=== PATIENT | female | born 1945 | race Two or more races ===

== ENCOUNTER → 2016-10-22 | Day surgery (SDC) | payer OTHER ==
[~2016-10-22] VITALS: Ht 152.4 cm; Wt 64.4 kg
[~2016-10-22] MED LIST: ALBU1AER4 IN; ANGIOMAX 250 MG VIAL IV ONE; ATOR1TAB PO; COMIH INH; ERGO1CAP6 PO; FENO160T8 PO; IOHEXOL 350 MG/ML 100ML IJ ONE; LAB200T PO; LIDOCAINE 2%HCL (LOCAL ANESTH.) INJ 20ML MDV ONE; MIDAZOLAM HCL 1MG/1ML-2 ML VIAL ONE; NITR0.4S29 SL; RANO500T2 PO; SODIUM CHL 0.9% 0 ML ONE; VENL75CA78 PO; fentaNYL CITRATE 100 MCG/2 ML VL ONE
== END | disposition home or self-care (01) ==
LOC: CATH 07:43
PROVIDERS: ATTEND Internal Medicine Cardiovascular Disease
DX: I25.10 Atherosclerotic heart disease of native coronary artery without angina pectoris (principal); I50.9 Heart failure, unspecified; Z95.1 Presence of aortocoronary bypass graft
CPT/HCPCS: 93458; C1769; J1644; J2250; J3010; Q9967; 99152; 99153